=== PATIENT | male | born 1985 | race Caucasian/White ===

== ENCOUNTER 2024-01-12 16:40 | Emergency (ER) | payer MEDICAID, SELFPAY ==
--- NOTE | ~2024-01-12 | US_ITS ---
EXAMINATION: US SCROTUM CLINICAL INFORMATION: Dysuria. Pain. COMPARISON: None available. TECHNIQUE: A sonogram of the scrotum was performed assessing taveras-scale appearance and color Doppler flow. Spectral Doppler analysis of the arterial and venous flow were performed in the testes bilaterally. FINDINGS: RIGHT: Right testicle measures 4.7 x 1.9 x 3.1 cm, volume 14.3 mL. No focal testicular parenchymal lesions are visualized. Tiny calcification consistent with Microlithiasis. Spectral Doppler analysis of the arterial and venous flow is normal in the right testis. Right epididymal head is normal in size. Small right-sided hydrocele. No varicocele is seen. Right epididymal Doppler flow is normal. LEFT: Left testicle measures 4.7 x 2 x 3.5 cm, volume 17.2 mL. No focal testicular parenchymal lesions are visualized. Tiny calcification consistent with Microlithiasis. Spectral Doppler analysis of the arterial and venous flow is normal in the left testis. Left epididymal head is normal in size. No left hydrocele or varicocele is seen. Left epididymal Doppler flow is normal. US/US scrotum IMPRESSION: 1. No acute abnormality. 2. Small right-sided hydrocele. Electronically signed by: Dusty Wilson MD 01/12/2024 08:07 PM EDT
--- NOTE | ~2024-01-12 | US_ITS ---
EXAMINATION: US SCROTUM CLINICAL INFORMATION: Dysuria. Pain. COMPARISON: None available. TECHNIQUE: A sonogram of the scrotum was performed assessing taveras-scale appearance and color Doppler flow. Spectral Doppler analysis of the arterial and venous flow were performed in the testes bilaterally. FINDINGS: RIGHT: Right testicle measures 4.7 x 1.9 x 3.1 cm, volume 14.3 mL. No focal testicular parenchymal lesions are visualized. Tiny calcification consistent with Microlithiasis. Spectral Doppler analysis of the arterial and venous flow is normal in the right testis. Right epididymal head is normal in size. Small right-sided hydrocele. No varicocele is seen. Right epididymal Doppler flow is normal. LEFT: Left testicle measures 4.7 x 2 x 3.5 cm, volume 17.2 mL. No focal testicular parenchymal lesions are visualized. Tiny calcification consistent with Microlithiasis. Spectral Doppler analysis of the arterial and venous flow is normal in the left testis. Left epididymal head is normal in size. No left hydrocele or varicocele is seen. Left epididymal Doppler flow is normal. US/US scrotum doppler IMPRESSION: 1. No acute abnormality. 2. Small right-sided hydrocele. Electronically signed by: Dusty Wilson MD 01/12/2024 08:07 PM EDT
[2024-01-12 16:41] VITALS: BP 131/68; PULSE 58; RESP 19; TEMP 36.6; O2SAT 98; BMI 24.6
--- NOTE | 2024-01-12 19:07 | MHC.EDTECH ---
This tech called patient at 1905 to obtain urines,patient was not in the waiting area,will re attempt
[2024-01-12 19:23] LABS: Appearance Urine Clear; Color Urine Yellow; Glucose Urine UA Negative (Negative); Leukocyte Esterase Urine Negative (Negative); Nitrite Urine Negative (Negative); PH 5.5 (5.0-9.0); Urine Blood Negative (Negative); Urine Ketones Negative (Negative); Urine Protein Negative (Neg-Trace)
[2024-01-12 20:00] VITALS: BP 124/80; PULSE 57; RESP 16; TEMP 36.8; O2SAT 100
--- NOTE | 2024-01-12 20:09 | ED.MALEGU ---
HPI - Male Genitourinary General Chief complaint: Urogenital-Male Stated complaint: ?uti Time Seen by Provider: 01/12/24 19:57 Source: patient and certified court/medical interpreter Mode of arrival: ambulatory Limitations: no limitations History of Present Illness ED Provider: CORINA HERRERA Narrative: 38 yo male with no sig PMH here with c/o 2 weeks dysuria now R testicle hurts. No fevers, abdominal pain, rash, swelling, drainage. Had unprotected sex with ex girlfriend before this happened. Complaint: testicle pain and dysuria Onset (ago): week(s) (2) Duration: constant Location: penis and right testicle Severity: mild Quality: burning Relieving factors: none Exacerbating factors: urination Context: new sexual partner Associated symptoms: Reports denies other symptoms Related Data Previous Rx's ?Medication ?Instructions ?Recorded doxycycline hyclate 100 mg capsule 100 mg PO BID 7 days #14 caps 01/12/24 Allergies Allergy/AdvReac Type Severity Reaction Status Date / Time No Known Allergies Allergy Verified 01/12/24 16:45 Review of Systems Review of Systems: Constitutional : No Fever, No Chills, No Fatigue ENT/Mouth : No sore throat, No Rhinorrhea Eyes: No Eye Pain, No Swelling, No Redness Cardiovascular : No Chest Pain, No SOB, No Dyspnea on Exertion Respiratory : No Cough, No Sputum Gastrointestinal : No Nausea, No Vomiting, No Diarrhea, No abdominal Pain Genitourinary : pos Dysuria, No Urinary Frequency, No Hematuria, pos scrotal pain Musculoskeletal : No joint pain, No Myalgias, No Joint Swelling Skin : No Skin Lesions, No rash Neuro : No Weakness, No Numbness, No Dizziness, no Headache Psych : No Anxiety/Panic, No Depression All other systems reviewed and are negative [facility] Past Medical History Attestation statement: The following information was validated with the patient. Source: old records reviewed Medical History No pertinent past medical history Social History Social History (Updated 01/12/24 @ 20:43 by Adilene Valdes DO) Patient Tobacco Use Status: Never used Tobacco Physical Exam Vital Signs: Vital Signs: Last Vital Signs Temp 98.3 F 01/12/24 20:00 Pulse 57 01/12/24 20:00 Resp 16 01/12/24 20:00 BP 124/80 09/25/24 20:00 Pulse Ox 100 01/12/24 20:00 O2 Del Method Room Air 01/12/24 20:00 BMI result Body Mass Index 24.6 Appearance: Alert. Oriented X3. No acute distress. Eyes: Pupils equal, round and reactive to light. ENT: Pharynx normal. Neck: Normal inspection. Neck supple. CVS: Pulses normal. Respiratory: No respiratory distress. Abdomen: Soft and non-tender. : normal exam no swelling no mass no rash no drainage - Dago present for exam Skin: Skin warm and dry. Normal skin color. Extremities: No lower extremity edema. Neuro: Oriented X 3. No motor deficit. No sensory deficit. Medical Decision Making Medical Decision Making [facility] Narrative: 38 yo male with no sig PMH here with c/o dysuria and scrotal pain with normal urine and US after unprotected sex. exam normal at this time will need UA/US and start on ceftriaxone and doxy discussed follow up and outpatient care during abx use. Differential Diagnosis Differential Diagnoses: The differential diagnosis associated with the presentation includes STI exposure, STI, epididymitis Admission/Observation Consideration of admission/observation: Escalation of care including admission/observation considered not toxic can be managed with outpatient care patient aware of hydrocele Lab Data [facility] Lab Attestation statement: I reviewed the patient's lab results. Labs: Lab Results 01/12/24 Range/Units 19:12 Urine Color Yellow Urine Appearance Clear Urine pH 5.5 (5.0-9.0) Ur Specific Nolan 1.010 (1.005-1.025) Urine Protein Negative (Neg-Trace) mg/dL Urine Glucose (UA) Negative (Negative) mg/dL Urine Ketones Negative (Negative) mg/dL Urine Blood Negative (Negative) Urine Nitrite Negative (Negative) Ur Leukocyte Esterase Negative (Negative) Independent Interpretation I performed an independent interpretation of an: Ultrasound (hydrocele) Radiology Impression Discussion of test interpretation with radiology: I have reviewed the radiologist's reading. Prescription Management I considered prescription management with: Antibiotic Discharge Plan Discharge Clinical Impression: Urethritis Patient Disposition: Home, Self-Care Instructions: Sexually Transmitted Diseases (ED), Nonspecific Urethritis in Men (ED) Additional Instructions: no sex for one week, partner should be treated results back in one week finish all antibiotics treated for gonorrhea and chlamydia [facility] and HIV testing Prescriptions: New doxycycline hyclate 100 mg capsule 100 mg PO BID 7 Days Qty: 14 0RF Print Language: Mosotho
[2024-01-12] MEDS: cefTRIAXone sodium 500 MG, Lidocaine HCl 1 % MPF 1 ML IM (21:53)
[2024-01-12] MEDS: Doxycycline Monohydrate 100 MG CAPSULE PO (21:53)
[2024-01-12 22:12] VITALS: BP 124/80; PULSE 57; RESP 16; TEMP 36.8; O2SAT 100
[2024-01-13 05:54] LABS: CT PCR NOT DETECTED (Not Detect.); NG PCR NOT DETECTED (Not Detect.)
== END 2024-01-12 22:05 | disposition home or self-care (01) ==
PROVIDERS: Emergency Provider Emergency Medicine
DX: N34.2 Other urethritis (principal); R30.0 Dysuria; N50.811 Right testicular pain; R10.9 Unspecified abdominal pain; Z20.2 Contact with and (suspected) exposure to infections with a predominantly sexual mode of transmission
CPT/HCPCS: 76870; 81003; 87491; 87591; 93975; 96372; 99284; J0696

== ENCOUNTER 2025-04-09 12:29 | Emergency (ER) | payer OTHER, SELFPAY ==
--- NOTE | ~2025-04-09 | US_ITS ---
EXAMINATION: US TRIPLEX UPPER EXTREMITY, RIGHT CLINICAL INFORMATION: Right upper extremity swelling COMPARISON: None available. TECHNIQUE: Color-flow triplex imaging with spectral analysis and compression Doppler was performed on the right upper extremity. FINDINGS: The right internal jugular, subclavian, and axillary veins are patent and free of thrombus. The imaged segment of the right brachiocephalic vein is patent. Spectral doppler waveforms are normal. The brachial, basilic, cephalic, radial, and ulnar veins are patent and compressible. US/US venous duplex UE RT IMPRESSION: No evidence of deep venous thrombosis involving the right upper extremity. Electronically signed by: Richard Meadows MD 04/09/2025 03:28 PM EST
--- NOTE | ~2025-04-09 | XR_ITS ---
EXAMINATION: XR ELBOW, RIGHT CLINICAL INFORMATION: Pain. Tendinitis fracture COMPARISON: None available. TECHNIQUE: AP, lateral, and oblique views of the right elbow. FINDINGS: The bones and soft tissues are normal. No fracture or joint effusion. Alignment is anatomic. Joint spaces are maintained. XR/XR elbow RT min 3V IMPRESSION: Unremarkable right elbow. Electronically signed by: Danny Washington MD 04/09/2025 01:06 PM EST
[2025-04-09 12:37] VITALS: BP 132/76; PULSE 74; RESP 18; TEMP 36.6; O2SAT 98; BMI 24.9
--- NOTE | 2025-04-09 12:40 | ED.GENADULT ---
HPI - General Adult General Chief complaint: General Medical Stated complaint: Vein Swelling- Numbness In R Arm Time Seen by Provider: 04/09/25 13:08 Source: patient, RN notes reviewed and old records reviewed Mode of arrival: ambulatory History of Present Illness ED Provider: Gisselle Lovell PA-C [facility] narrative: 39-year-old male with no significant past medical history presenting to the ED complaining of painful swollen vein to right arm x1 month. Reports associated intermittent tingling/ paresthesias to right hand. Denies known injury, trauma, fall, weakness, recent instrumentation, fever Related Data Previous Rx's ?Medication ?Instructions ?Recorded doxycycline hyclate 100 mg capsule 100 mg PO BID 7 days #14 caps 01/12/24 naproxen 500 mg tablet 500 mg PO BID PRN pain 10 days #20 04/09/25 tabs Allergies Allergy/AdvReac Type Severity Reaction Status Date / Time No Known Allergies Allergy Verified 04/09/25 12:38 Review of Systems Review of Systems: Yes all other systems are reviewed and are negative Constitutional: Constitutional: Reports as per [facility] Past Medical History Attestation statement: The following information was validated with the patient. Source: old records reviewed Medical History No pertinent past medical history Social History Social History Patient Tobacco Use Status: Never used Tobacco Physical Exam ED Vital Signs: Vital Signs - 24 hr 04/09/25 12:37 Temperature 98 F Pulse Rate 74 Respiratory Rate 18 Blood Pressure 132/76 Pulse Oximetry 98 Oxygen Delivery Method Room Air BMI result Body Mass Index 24.9 Const General: cooperative, healthy appearing and no acute distress Orientation/consciousness: patient oriented x3 Limitations: no limitations HENMT Head: Yes normal to inspection and Yes atraumatic Ears: hearing grossly normal bilaterally General nose exam: Normal external nose present Face and sinus: Yes normal facial exam Eyes General: appearance normal, both eyes and all related structures EOM: EOMs intact bilaterally Neck Neck: Yes normal visual inspection and Yes no meningeal signs Resp Effort & Inspection: normal respiratory effort and no respiratory distress Cardio Rate: regular rate Skin Other: mild right antecubital venous tenderness. No overt inflammation. No erythema or warmth. No pitting edema. Neurovascularly intact distally. Strength intact Rashes: no rashes Wounds: no wounds Neuro General: patient oriented x3, tone normal and no meningeal signs Cranial nerves: Yes CN's II-XII intact bilaterally Gait exam (Neuro): Normal gait present Extrem General: Yes normal to inspection Course Course Course Narrative: RME: 39-year-old male presents to ED for right antecubital intermittent swelling and pain for the past 3 weeks. Patient states also numbness. Patient states but even right antecubital vein swelling. no obvious deformity, or swelling. positive for mild anticubital tendneres. xray US ordered. motor, neuro, and vascular exam is intact. XR elbow RT min 3V IMPRESSION: Unremarkable right elbow. US venous duplex UE RT IMPRESSION: No evidence of deep venous thrombosis involving the right upper extremity. Results discussed with patient including worrisome signs and symptoms and strict return precautions, and when to return to the emergency department. They verbalized understanding and feel safe for discharge at this time. Medications Administered Discontinued Medications Generic Name Dose Route Start Last Admin Trade Name Freq PRN Reason Stop Dose Admin Ketorolac Tromethamine 30 mg 04/09/25 14:58 04/09/25 15:22 Ketorolac Tromethamine 30 Mg/Ml Vial IM 04/09/25 14:59 30 mg ONCE ONE Administration Medical Decision Making Medical Decision Making [facility] Narrative: 39-year-old male with no significant past medical history presenting to the ED complaining of painful swollen vein to right arm x1 month. on exam vital signs stable, NAD, nontoxic appearing my physical exam as noted above. Concern for thrombophlebitis. Lower suspicion for DVT. No evidence of cellulitis/ septic joint or ischemic limb. Low suspicion for compartment syndrome plan: X-ray ordered in triage, ultrasound Please refer to course for remaining clinical decision making, interpretation of labs/imaging results, and discussions with consultants and/or family members. Differential Diagnosis Differential Diagnoses: The differential diagnosis associated with the presentation includes As above Lab Data [facility] Lab Attestation statement: I reviewed the patient's lab results. Independent Interpretation I performed an independent interpretation of an: Plain X-Ray and Ultrasound Radiology Impression Discussion of test interpretation with radiology: I have reviewed the radiologist's reading. External Record Review External record reviewed: Inpatient record, Office record, Outpatient record, Prior outpatient labs, Prior outpatient radiology, Primary care record and Outside ED record Tests considered The following testing was considered but not selected: As above Prescription Management I considered prescription management with: Pain Medication Chronic Conditions Patient?s care impacted by: Other Social Determinants Patient?s care significantly limited by Social Determinants of Health including: Other Social Determinant of Health Discharge Plan Discharge Clinical Impression: Superficial thrombophlebitis Patient Disposition: Home, Self-Care Additional Instructions: your ultrasound and x-ray are reassuring Naproxen as an anti-inflammatory/ pain medication, take with food new line in addition you may take Tylenol if area begins to look infected, as red, warmth to touch, you fever, difficulty or inability to bend the arm return to the ED Prescriptions: New naproxen 500 mg tablet 500 mg PO BID PRN (Reason: pain) 10 Days Qty: 20 0RF No Action doxycycline hyclate 100 mg capsule 100 mg PO BID 7 Days Qty: 14 0RF Referrals: Physician,None [Primary Care Provider, Medical] - 1 week Interventions: ED Discharge Assessment Last Done: 04/09/25 16:26 Discharge Date/Time: 04/09/25 16:26 Print Language: Slovenian
[2025-04-09 16:26] VITALS: BP 132/76; PULSE 74; RESP 18; TEMP 36.6; O2SAT 98
== END 2025-04-09 16:26 | disposition home or self-care (01) ==
PROVIDERS: Emergency Provider Emergency Medicine
DX: I80.9 Phlebitis and thrombophlebitis of unspecified site (principal); R20.0 Anesthesia of skin; R60.0 Localized edema; M25.521 Pain in right elbow
CPT/HCPCS: 73080; 93971; 96372; 99283; 99284; J1885

== ENCOUNTER → 2025-04-09 12:39 | Outpatient (BNV) | payer OTHER, SELFPAY | PROVIDERS: Visit Provider Radiology Diagnostic Radiology | DX: R22.31 Localized swelling, mass and lump, right upper limb (principal); S42.401A Unspecified fracture of lower end of right humerus, initial encounter for closed fracture | CPT/HCPCS: 73080; 93971 ==